=== PATIENT | male | born 2000 | race Caucasian/White ===

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

== ENCOUNTER 2020-08-14 20:27 | Emergency (ER) | payer OTHER ==
[~2020-08-14] VITALS: Ht 182.8 cm; Wt 90.7 kg
[~2020-08-14 20:27] MED LIST: TAMIFLU 75MG CA75 MG PO
[2020-08-14] MEDS ORDERED: SILVADENE,SSD C50 GM PO (21:33)
[2020-08-14] MEDS ORDERED: CEPHALEXIN500 M1 PO (21:33)
== END 2020-08-14 22:04 | disposition home or self-care (01) ==
LOC: ED 20:27
DX: T23.202A Burn of second degree of left hand, unspecified site, initial encounter (principal); X08.8XXA Exposure to other specified smoke, fire and flames, initial encounter; Y93.89 Activity, other specified; Y92.89 Other specified places as the place of occurrence of the external cause; Y99.0 Civilian activity done for income or pay

== ENCOUNTER 2024-05-18 18:14 | Emergency (ER) | payer SELFPAY ==
[~2024-05-18] VITALS: Ht 182.8 cm; Wt 99.8 kg
[~2024-05-18 18:14] MED LIST changes: +CEPHALEXIN500 M1 PO; +SILVADENE,SSD C50 GM PO
[2024-05-18] MEDS ORDERED: Ondansetron Hydrochloride 4 MG/2 ML VIAL IV ONE (19:00)
[2024-05-18] MEDS ORDERED: SODIUM CHLORIDE 0.9% 1,000 ML IV ONE (19:00)
[2024-05-18 19:13] LABS: BASO % 0.6 % (0.0-1.0); EOS # 0.4 10*3/uL (0.0-0.4); EOS % 5.1 % (1.0-4.0); HEMATOCRIT 43.5 % (42.0-52.0); LYMPH # 1.8 10*3/uL (1.3-4.4); LYMPH % 24.6 % (27.0-41.0); MEAN CELL VOLUME 87.5 fl (80.0-94.0); MEAN CORPUSCULAR HGB 29.4 pg (27.0-31.0); MEAN CORPUSCULAR HGB CONC 33.6 g/dl (33.0-37.0); MEAN PLATELET VOLUME 9.7 fl (9.6-12.3); MONO # 1.3 10*3/uL (0.1-1.0); MONO % 17.6 % (3.0-9.0); NEUT # 3.7 10*3/uL (2.3-7.9); PLATELET COUNT AUTOMATED 197 10*3/uL (130-400); RED BLOOD COUNT 4.97 10*6/uL (4.50-5.90); WHITE BLOOD COUNT 7.2 10*3/uL (4.8-10.8)
[2024-05-18 19:50] LABS: ALKALINE PHOSPHATASE 60 U/L (46-116); BUN 13 mg/dl (9-23); CHLORIDE 103 mmol/L (98-107); LIPASE 66 U/L (12-53); POTASSIUM 3.8 mmol/L (3.4-5.1); SGPT/ALT 75 U/L (5-49); TOTAL PROTEIN 7.3 gm/dL (6.0-8.0)
[2024-05-18] MEDS ORDERED: Ondansetron4 MG PO (20:15)
== END 2024-05-18 20:27 | disposition home or self-care (01) ==
LOC: ED 18:14
PROVIDERS: Nurse Practitioner Family
DX: B34.9 Viral infection, unspecified (principal); Z20.822 Contact with and (suspected) exposure to COVID-19; R11.2 Nausea with vomiting, unspecified